=== PATIENT | female | born 1950 | race Caucasian/White ===

== ENCOUNTER 2024-09-25 12:49 | Inpatient (IN) | payer MEDICARE, OTHER ==
[~2024-09-25] VITALS: Ht 167.6 cm; Wt 99.8 kg
[2024-09-25 13:24] LABS: PLATELET COUNT (AUTO) 134 K/uL (179-408); RED BLOOD CELL COUNT(AUTO) 3.03 MIL/uL (3.63-4.92); RED CELL DISTRIBUTION WIDTH 14.3 % (12.3-17.7); WHITE BLOOD COUNT (AUTO) 6.6 K/uL (3.8-11.8)
[2024-09-25] MEDS ORDERED: HYDROCODONE/APAP 10-325 MG TABLET ONE (13:24)
[2024-09-25] MEDS: HYDROCODONE/APAP 10-325 MG TABLET PO ONE (13:27)
[2024-09-25 13:29] LABS: CREATININE 0.9 mg/dL (0.6-1.3); SODIUM SERUM 138 mmol/L (136-145); UREA NITROGEN, BLOOD 17 mg/dL (7-18)
[2024-09-25 13:35] LABS: ASPARTATE AMINOTRANSFERASE 16 U/L (15-37); TOTAL PROTEIN, SERUM 6.6 g/dL (6.4-8.2)
[2024-09-25] MEDS ORDERED: TRAZ-182 PO (14:03)
[2024-09-25] MEDS ORDERED: MAGN400O6 PO (14:03)
[2024-09-25] MEDS ORDERED: MENT71OI TP (14:03)
[2024-09-25] MEDS ORDERED: GABA100C PO (14:03)
[2024-09-25] MEDS ORDERED: BRIM5DRO5 RIGHTEYE (14:03)
[2024-09-25] MEDS ORDERED: MULT-594 PO (14:03)
[2024-09-25] MEDS ORDERED: BISA10SU61 RC (14:03)
[2024-09-25] MEDS ORDERED: LATA7.5D EACHEYE (14:03)
[2024-09-25] MEDS ORDERED: ACET-2605 PO (14:03)
[2024-09-25] MEDS ORDERED: LEVO100T10 PO (14:03)
[2024-09-25] MEDS ORDERED: MELA3TAB52 PO (14:03)
[2024-09-25] MEDS ORDERED: ACET325C7 PO (14:03)
[2024-09-25] MEDS ORDERED: FURO40TA5 PO (14:03)
[2024-09-25] MEDS ORDERED: POLY15DR31 EACHEYE (14:03)
[2024-09-25] MEDS ORDERED: SENN-18 PO (14:03)
[2024-09-25] MEDS ORDERED: TRAM100T23 PO (14:03)
[2024-09-25] MEDS ORDERED: DULO60CA64 PO (14:03)
[2024-09-25] MEDS ORDERED: NA P133E RC (14:03)
[2024-09-25] MEDS ORDERED: ATOR20TA PO (14:03)
[2024-09-25] MEDS ORDERED: POLY17PO4 PO ×2 (14:03→18:08)
[2024-09-25] MEDS ORDERED: DOCU-141 PO (14:03)
[2024-09-25] MEDS ORDERED: MIDO2.5T PO (14:03)
[2024-09-25] MEDS ORDERED: VOLTAREN GEL 1% TOP (14:03)
[2024-09-25] MEDS ORDERED: CHOL500062 PO (14:03)
[2024-09-25 14:07] LABS: *BILIRUBIN,URIN NEGATIVE (NEGATIVE); *BLOOD, URINE NEGATIVE (NEGATIVE); *CLARITY,URINE CLEAR (CLEAR); *COLOR,URINE YELLOW (YELLOW); *KETONES,URINE NEGATIVE (NEGATIVE); *PROTEIN,URINE TRACE (NEGATIVE); *UROBILINOGEN,URINE 1.0 E.U./dl (NORMAL); LEUKOCYTE ESTERASE ,URINE TRACE (NEGATIVE); NITRITE, URINE NEGATIVE (NEGATIVE); UGLUCOSE NEGATIVE (NEGATIVE)
[2024-09-25 14:19] LABS: SQUAMOUS EPITHELIAL CELL,UR FEW /HPF (NONE SEEN); URINE AMORPHOUS URATE FEW /HPF
[2024-09-25 15:01] LABS: IRON, SERUM 24.0 ug/dL (50-175)
[2024-09-25] MEDS ORDERED: TRAM100T39 PO (18:09)
[2024-09-25 18:13] VITALS: BP 97/50; TEMP 97.6; O2SAT 98
[2024-09-25] MEDS ORDERED: FLEET ENEMA 133 ML BOTTLE RC PRN (18:45)
[2024-09-25] MEDS ORDERED: MIDODRINE HCL 2.5 MG TABLET PO PRN (18:45)
[2024-09-25] MEDS ORDERED: BISACODYL 10 MG SUPP.RECT RC PRN (18:45)
[2024-09-25 19:15] VITALS: BP 132/60; TEMP 98.5; O2SAT 98
[2024-09-25] MEDS ORDERED: MORPHINE SULFATE 2 MG/1 ML DISP.SYRIN IV PRN (19:30)
[2024-09-25] MEDS ORDERED: HYDROCODONE/APAP 10-325 MG TABLET PO PRN (20:15)
[2024-09-25] MEDS ORDERED: MELATONIN 3 MG TABLET PO PRN (20:15)
[2024-09-25] MEDS: CALMOSEPTINE 113 GM OINTMENT TP SCH (21:00)
[2024-09-25] MEDS: ATORVASTATIN 20 MG TABLET PO SCH (21:04)
[2024-09-25] MEDS: DOCUSATE SODIUM 100 MG CAPSULE PO SCH (21:04)
[2024-09-25] MEDS: DULOXETINE 60 MG CAPSULE.DR PO SCH (21:04)
[2024-09-25] MEDS: BRIMONIDINE 0.2% OPHT DROP 10 ML BOTTLE RIGHTEYE SCH (21:08)
[2024-09-25] MEDS: GABAPENTIN 100 MG CAPSULE PO SCH (21:08)
[2024-09-25] MEDS: HYDROMORPHONE 1 MG/1 ML DISP.SYRIN IV PRN (21:10)
[2024-09-25] MEDS ORDERED: ONDANSETRON 4 MG/2 ML VIAL IV PRN (22:15)
[2024-09-25] MEDS ORDERED: CEFTRIAXONE /D5W 50ML IVPB **ER PYXIS IV ONE (23:18)
[2024-09-25] MEDS: CEFTRIAXONE 1 G in IV DEXTROSE 5% 50 ML IV SCH (23:48)
[2024-09-26] MEDS: SENNOSIDES 1 TABLET PO SCH (06:25)
[2024-09-26] MEDS: LEVOTHYROXINE SODIUM 100 MCG TABLET PO SCH (06:25)
[2024-09-26 06:41] VITALS: BP 105/73; TEMP 100.7; O2SAT 96
[2024-09-26 06:48] LABS: PLATELET COUNT (AUTO) 123 K/uL (179-408); RED BLOOD CELL COUNT(AUTO) 2.80 MIL/uL (3.63-4.92); RED CELL DISTRIBUTION WIDTH 14.1 % (12.3-17.7); WHITE BLOOD COUNT (AUTO) 3.3 K/uL (3.8-11.8)
[2024-09-26 07:17] LABS: ASPARTATE AMINOTRANSFERASE 17 U/L (15-37); CREATININE 0.8 mg/dL (0.6-1.3); SODIUM SERUM 138 mmol/L (136-145); TOTAL PROTEIN, SERUM 6.0 g/dL (6.4-8.2); UREA NITROGEN, BLOOD 15 mg/dL (7-18)
[2024-09-26 07:53] LABS: CREATINE KINASE, TOTAL 101 U/L (26-192)
[2024-09-26 08:07] LABS: IRON, SERUM 23 ug/dL (50-175)
[2024-09-26] MEDS: FUROSEMIDE 40 MG TABLET PO SCH (08:54)
[2024-09-26] MEDS: MULTIVITAMINS,THERAPEUTIC TABLET PO SCH (08:55)
[2024-09-26] MEDS ORDERED: CALMOSEPTINE 113 GM OINTMENT TP SCH (09:00)
[2024-09-26] MEDS: REMEDY ESSENTIAL ZINC PASTE 113 GM TP SCH (09:00)
[2024-09-26 11:33] VITALS: BP 109/46; TEMP 98.9; O2SAT 98
[2024-09-26 13:20] LABS: BAND % (MANUAL) 5 % (0-10); EOSINOPHILS % (MANUAL) 5 % (0-8); LYMPHOCYTES % (MANUAL) 12 % (20-40); MONOCYTES % (MANUAL) 16 % (2-10); NEUTROPHILS % (MANUAL) 62 % (42-75); PLATELET ESTIMATE DECREASED
[2024-09-26 15:52] VITALS: BP 114/51; TEMP 99.8; O2SAT 96
[2024-09-26] MEDS: ACETAMINOPHEN 325 MG TABLET PO PRN (18:46)
[2024-09-26 19:00] VITALS: BP 117/40; TEMP 99.9; O2SAT 95
[2024-09-27 06:22] VITALS: BP 119/59; TEMP 98.8; O2SAT 96
[2024-09-27] MEDS: MAGNESIUM HYDROXIDE 30 ML LIQUID UDC PO PRN (08:47)
[2024-09-27 11:44] VITALS: BP 122/63; TEMP 99.8; O2SAT 99
[2024-09-27] MEDS: ALPRAZOLAM 0.5 MG TABLET PO PRN (12:47)
[2024-09-27 16:12] VITALS: BP 128/46; TEMP 98; O2SAT 96
[2024-09-27 19:20] VITALS: BP 91/51; TEMP 98.9; O2SAT 93
[2024-09-28] MEDS: TRAZODONE 50 MG TABLET PO PRN (01:57)
[2024-09-28 05:39] VITALS: BP 107/54; TEMP 98.4; O2SAT 94
[2024-09-28 10:30] VITALS: BP 140/52; TEMP 97.8; O2SAT 95
[2024-09-28 15:42] VITALS: BP 145/57; TEMP 97.9; O2SAT 94
[2024-09-28 19:20] VITALS: BP 138/50; TEMP 99.3; O2SAT 97
[2024-09-29 04:48] VITALS: BP 105/60; TEMP 98.4; O2SAT 94
[2024-09-29 11:22] VITALS: BP 94/48; TEMP 98.6; O2SAT 97
[2024-09-29] MEDS: MIRALAX 17 GM POWD.PACK PO PRN (13:12)
[2024-09-29 15:33] VITALS: BP 118/49; TEMP 97.8; O2SAT 97
[2024-09-29 19:10] VITALS: BP 138/60; TEMP 99.1; O2SAT 97
[2024-09-30 04:15] VITALS: BP 124/53; TEMP 98.6; O2SAT 95
[2024-09-30] MEDS: ENSURE ENLIVE (VAN) 240 ML LIQUID PO SCH (09:00)
[2024-09-30 10:30] LABS: PLATELET COUNT (AUTO) 195 K/uL (179-408); RED BLOOD CELL COUNT(AUTO) 3.11 MIL/uL (3.63-4.92); RED CELL DISTRIBUTION WIDTH 14.5 % (12.3-17.7); WHITE BLOOD COUNT (AUTO) 3.8 K/uL (3.8-11.8)
[2024-09-30] MEDS ORDERED: VANCOMYCIN 1000 MG VIAL ONE (10:31)
[2024-09-30] MEDS ORDERED: ROCURONIUM BROMIDE 50 MG/5 ML VIAL ONE (11:14)
[2024-09-30] MEDS ORDERED: FENTANYL CITRATE 100 MCG/2 ML AMPUL ONE (11:14)
[2024-09-30] MEDS ORDERED: SUCCINYLCHOLINE CHLORIDE 200 MG/10 ML VIAL ONE (11:15)
[2024-09-30] MEDS ORDERED: KETOROLAC TROMETHAMINE 15 MG INJ IVP PRN (12:45)
[2024-09-30] MEDS ORDERED: MEPERIDINE 25 MG/1 ML DISP.SYRIN IV PRN (12:45)
[2024-09-30] MEDS ORDERED: MORPHINE SULFATE 2 MG/1 ML DISP.SYRIN IV PRN (12:45)
[2024-09-30] MEDS ORDERED: ONDANSETRON 4 MG/2 ML VIAL IV PRN (12:45)
[2024-09-30] MEDS ORDERED: BUPIVACAINE PF 0.5% 30 ML VIAL ONE (12:46)
[2024-09-30] MEDS: HYDROMORPHONE 1 MG/1 ML DISP.SYRIN IV PRN (13:32)
[2024-09-30 14:23] VITALS: BP 120/61; TEMP 97.4; O2SAT 99
[2024-09-30] MEDS: IV D5W-0.45% NS +20 KCL 1,000 ML IV PRN (16:11)
[2024-09-30] MEDS: MORPHINE SULFATE 2 MG/1 ML DISP.SYRIN IV PRN (16:12)
[2024-09-30 19:15] VITALS: BP 132/54; TEMP 98.2; O2SAT 99
[2024-09-30] MEDS: CEFAZOLIN 1 G in IV DEXTROSE 5% 50 ML IV SCH (20:24)
[2024-10-01 04:00] VITALS: BP 141/56; TEMP 98.4; O2SAT 97
[2024-10-01 07:27] LABS: CREATININE 0.8 mg/dL (0.6-1.3); SODIUM SERUM 134 mmol/L (136-145); UREA NITROGEN, BLOOD 24 mg/dL (7-18)
[2024-10-01 11:47] VITALS: BP 155/64; TEMP 99.1; O2SAT 99
[2024-10-01] MEDS: HYDROCODONE/APAP 10-325 MG TABLET PO PRN (13:25)
[2024-10-01 15:01] VITALS: BP 141/57; TEMP 98.2; O2SAT 97
[2024-10-01 19:10] VITALS: BP 148/68; TEMP 99.2; O2SAT 98
[2024-10-01] MEDS ORDERED: IV D5W-0.45% NS +20 KCL 1,000 ML IV ONE (20:23)
[2024-10-01] MEDS: LATANOPROST 0.005% EACHEYE SCH (21:05)
[2024-10-01] MEDS: [UNRECOGNIZED DRUG - OTHER] EACHEYE SCH (21:05)
[2024-10-02 06:36] VITALS: BP 166/66; TEMP 98.4; O2SAT 99
[2024-10-02] MEDS ORDERED: FUROSEMIDE 40 MG TABLET PO SCH (09:00)
[2024-10-02 11:13] VITALS: BP 150/63; TEMP 98.4; O2SAT 95
[2024-10-02 15:02] VITALS: BP 140/55; TEMP 98.1; O2SAT 96
[2024-10-02 19:00] VITALS: BP 100/60; TEMP 98.8; O2SAT 95
[2024-10-03 06:32] VITALS: BP 116/53; TEMP 98; O2SAT 100
[2024-10-03] MEDS: FUROSEMIDE 20 MG TABLET PO SCH (09:31)
[2024-10-03] MEDS ORDERED: FURO20TA4 PO (10:17)
[2024-10-03 11:00] VITALS: BP 119/49; TEMP 97.7; O2SAT 96
[2024-10-03 12:03] LABS: PLATELET COUNT (AUTO) 221 K/uL (179-408); RED BLOOD CELL COUNT(AUTO) 2.93 MIL/uL (3.63-4.92); RED CELL DISTRIBUTION WIDTH 14.4 % (12.3-17.7); WHITE BLOOD COUNT (AUTO) 6.0 K/uL (3.8-11.8)
[2024-10-03 12:10] LABS: CREATININE 1.0 mg/dL (0.6-1.3); SODIUM SERUM 137 mmol/L (136-145); UREA NITROGEN, BLOOD 27 mg/dL (7-18)
[2024-10-03 15:05] VITALS: BP 128/57; TEMP 98.4; O2SAT 94
== END 2024-10-03 18:50 | DRG 493 ==
LOC: ER 12:49 → EDBD 12:49 → MEDSURG3 17:26
PROVIDERS: ADMIT Internal Medicine; ATTEND Internal Medicine
PROC: 05HB33Z Insertion of Infusion Device into Right Basilic Vein, Percutaneous Approach (ICD-10-PCS; 2024-09-26)
PROC: 0PSD04Z Reposition Left Humeral Head with Internal Fixation Device, Open Approach (ICD-10-PCS; 2024-09-30)
PROC: 0PSG06Z Reposition Left Humeral Shaft with Intramedullary Internal Fixation Device, Open Approach (ICD-10-PCS; principal; 2024-09-30 11:00)
DX: S42.342A Displaced spiral fracture of shaft of humerus, left arm, initial encounter for closed fracture (principal); E44.0 Moderate protein-calorie malnutrition; I50.32 Chronic diastolic (congestive) heart failure; W19.XXXA Unspecified fall, initial encounter; Z91.81 History of falling; Y92.129 Unspecified place in nursing home as the place of occurrence of the external cause; H40.9 Unspecified glaucoma; E03.9 Hypothyroidism, unspecified; Z98.84 Bariatric surgery status; Z96.651 Presence of right artificial knee joint; Z90.49 Acquired absence of other specified parts of digestive tract; Z79.890 Hormone replacement therapy; R32 Unspecified urinary incontinence; Z68.35 Body mass index [BMI] 35.0-35.9, adult; L24.89 Irritant contact dermatitis due to other agents; E66.9 Obesity, unspecified; E78.5 Hyperlipidemia, unspecified; S00.11XA Contusion of right eyelid and periocular area, initial encounter; I48.0 Paroxysmal atrial fibrillation; Z95.818 Presence of other cardiac implants and grafts; M51.369 Other intervertebral disc degeneration, lumbar region without mention of lumbar back pain or lower extremity pain; M48.061 Spinal stenosis, lumbar region without neurogenic claudication; M50.91 Cervical disc disorder, unspecified, high cervical region; I89.0 Lymphedema, not elsewhere classified; I95.1 Orthostatic hypotension; I11.0 Hypertensive heart disease with heart failure; R29.6 Repeated falls; M43.17 Spondylolisthesis, lumbosacral region; G89.29 Other chronic pain; G62.9 Polyneuropathy, unspecified; F32.A Depression, unspecified; Z87.442 Personal history of urinary calculi; D50.9 Iron deficiency anemia, unspecified
CPT/HCPCS: 36415; 70030-TC; 70450; 71045; 72141; 72148; 73060; 73200; 82378; 83550; 83735; 84100; 84443; 84484; 85025; 87086; 93307; 93880; 97535-GO-CO; A4565; A4606; A4663; A6213; G0378; J0330; J0690; J0696; J1171; J2270; J3010; J3373; J3490; J7040